=== PATIENT | female | born 1995 | race Caucasian/White ===

== ENCOUNTER 2023-09-24 15:30 | Emergency (ER) | payer MEDICAID, SELFPAY ==
[2023-09-24 15:51] VITALS: BP 124/92; PULSE 114; O2SAT 100
[2023-09-24 15:59] VITALS: BP 144/84; PULSE 102; RESP 18; TEMP 36.6; O2SAT 100; BMI 28.6
--- NOTE | 2023-09-24 16:14 | ECG_ITS ---
Test Reason : NEAR SYNCOPE Blood Pressure : / mmHG Vent. Rate : 104 BPM Atrial Rate : 104 BPM P-R Int : 136 ms QRS Dur : 090 ms QT Int : 338 ms P-R-T Axes : 075 044 036 degrees QTc Int : 444 ms Sinus tachycardia Possible Left atrial enlargement Borderline ECG No previous ECGs available Referred By: Guillermina Fry Electronically Signed By:Poncho Rose
--- NOTE | 2023-09-24 16:19 | ED.GENADULT ---
HPI - General Adult General Chief complaint: General Medical Stated complaint: SOB,HX HTN BEING MEDICATED FOR,5WKS Time Seen by Provider: 09/24/23 16:01 Source: patient Mode of arrival: EMS Limitations: no limitations History of Present Illness HPI narrative: Patient is a 28-year-old female history of childhood asthma, LMP 08/18/23, approximate 5wks , pending initial OB evaluation. States SOB intermittently with palpitations since yesterday w/o URI symptoms, checked her BP 140-150 diastolic despite compliance with her verapamil, advised by her PCP to come to the ED. Reports letting the dog outside last night and has a near syncopal episode, had another near syncople episode today [employer], stood up, felt dizzy, diaphoertic, blurred vision, was able to sit down until symptoms resolved. States hx PVC's, increse palpitations recently, no CP. reports hx hyperemisis gravidarum, received RX Diclegis, taking only at night as is causes her to become sleepy during the day. Continues to vomit, poor PO intake, mild lower ABD cramping. Denies urinary symptoms Related Data Allergies Allergy/AdvReac Type Severity Reaction Status Date / Time amoxicillin [From Augmentin] Allergy Vomiting Verified 09/24/23 15:58 clavulanic acid Allergy Vomiting Verified 09/24/23 15:58 [From Augmentin] Sulfa (Sulfonamide Allergy Rash Verified 09/24/23 15:58 Antibiotics) Review of Systems Review of Systems: Yes all other systems are reviewed and are negative PMFSH Past Medical History Attestation statement: The following information was validated with the patient. Source: old records reviewed Social History Social History Smoked in Last 30 Days: No Use of substances other than those prescribed or required for medical reasons: Yes Substance Use Type: Marijuana Substance Use Frequency: Occasionally Advance Directives: No Advance Directives Information Provided: No Patient : Yes Physical Exam ED Vital Signs: Vital Signs - 24 hr 09/24/23 15:59 09/24/23 16:44 09/24/23 16:46 Temperature 97.9 F Pulse Rate 102 H 99 106 H Respiratory Rate 18 Blood Pressure 144/84 H 132/69 135/84 Pulse Oximetry 100 Oxygen Delivery Method Room Air 09/24/23 16:48 09/24/23 19:50 Temperature Pulse Rate 120 H 98 Respiratory Rate 16 Blood Pressure 148/99 H 121/69 Pulse Oximetry 100 Oxygen Delivery Method Room Air BMI result Body Mass Index 28.6 Appearance: Alert.?Oriented to person, place and time. No acute distress.?Normal affect. Eyes: Pupils equal, round and reactive to light.? ENT: Pharynx normal.?? Neck: Normal inspection.? Neck supple.?? CVS: Heart sounds normal. Mild tachycardia.? Pulses normal.?? Respiratory: No respiratory distress.? Lung sounds clear to auscultation bilaterally?? Abdomen: Soft and non-tender. Normoactive bowel sounds. No pulsatile mass.?? Skin: Skin warm and dry.? Normal skin color.? Normal skin turgor.?? Extremities: No lower extremity edema.? No calf ttp? Neuro: Moves all extremities spontaneously. Sensation intact bilaterally. CN II-XII intact. No focal neuro deficits. Ambulates with normal steady gait. Course Reevaluation(s) Reevaluation #1: Orthostatic vital signs are negative. EKG revealing a sinus tachycardia with ventricular rate of 104, no acute ischemic changes, high sensitive troponin below detectable limits. Given multiple presyncopal episodes will obtain delta troponin to exclude ACS. COVID-19/influenza testing negative. Clinically have low suspicion for pneumonia, given no URI symptoms, does not appear consistent with acute asthma exacerbation, lung sounds are clear bilaterally, no respiratory distress. CBC reveals a mild leukocytosis of 11.6, suspect this is likely reactive due to vomiting. No significant electrolyte abnormality, no LC. LFTs lipase within normal range. Urinalysis without evidence of infection. She reports feeling much better. Has been ambulatory with steady gait. Recommend close outpatient follow-up with PCP fashion consultant sales, discussed worrisome signs symptoms that would warrant re-evaluation emergency department. All questions answered. Stable for discharge. Medications Administered Discontinued Medications Generic Name Dose Route Start Last Admin Trade Name Freq PRN Reason Stop Dose Admin Sodium Chloride 1,000 mls @ 999 mls/hr 09/24/23 16:15 09/24/23 17:44 Ns IV 09/24/23 17:15 Infused .Q1H1M GALILEA Infusion Metoclopramide HCl 10 mg 09/24/23 16:14 09/24/23 16:42 Metoclopramide Hcl 10 Mg/2 Ml Vial IVPUSH 09/24/23 16:15 10 mg ONCE ONE Administration Medical Decision Making Medical Decision Making [facility] Narrative: 28-year-old female history of hypertension, hyperemesis gravidarum presenting to emergency department for shortness of breath and 2 near syncopal episodes. Physical examination is benign, abdominal examination benign. No respiratory distress. No hypoxia or tachypnea. Mild tachycardia hypertensive. Will obtain CBC to evaluate for leukocytosis/ anemia, CMP and lipase to evaluate for abnormal electrolytes /abnormal renal function/ abnormal hepatic/biliary function, EKG and troponin to evaluate for ischemia/ACS. Urinalysis. Assess orthostatic vital signs. Patient received 1 L normal saline IV fluid, Reglan IV. Differential Diagnosis Differential Diagnoses: The differential diagnosis associated with the presentation includes Orthostatic hypotension, vasovagal syncope, viral syndrome, Suspect less likely ACS, heart score 0. Low suspicion for pulmonary embolism, early likely not contributory for hypercoagulable state. Admission/Observation Consideration of admission/observation: Escalation of care including admission/observation considered (See narrative above in course narrative for further detail) Lab Data [facility] Lab Attestation statement: I reviewed the patient's lab results. See course narrative 09/24/23 16:41 09/24/23 16:41 Labs: Lab Results 09/24/23 09/24/23 09/24/23 Range/Units 16:09 16:41 17:23 WBC 11.6 H (4.8-10.8) X10*3/uL RBC 4.46 (4.20-5.50) X10*6/uL Hgb 13.2 (12.0-16.0) g/dl Hct 38.3 (37.0-47.0) % MCV 85.9 (80.0-98.0) fL MCH 29.6 (27.0-33.0) pg MCHC 34.5 (31.0-35.0) g/dl RDW 12.1 (11.0-16.0) % Plt Count 324 (160-400) X10*3/uL MPV 10.4 (9.4-12.3) fL Immature Gran % (Auto) 0.3 (0.0-0.4) % Neut % (Auto) 75.0 H (45-73) % Lymph % (Auto) 19.9 L (20-40) % [place] % (Auto) 4.4 (2-11) % Eos % (Auto) 0.1 (0-4) % Baso % (Auto) 0.3 (0-2) % Lymph # (Auto) 2.3 (1.2-4.9) X10*3/uL [place] # (Auto) 0.5 (0.1-1.2) X10*3/uL Eos # (Auto) 0.0 (0.0-0.4) X10*3/uL Baso # (Auto) 0.0 (0.0-0.2) X10*3/uL Abs Immat Gran (auto) 0.03 (0.00-0.03) X10*3/uL Absolute Neuts (auto) 8.7 H (2.0-8.3) x10*3/uL Absolute Nucleated RBC 0.000 (0.0-0.012) X10*3/uL Nucleated RBC % (auto) 0.0 (0.0-0.2) /100WBC PT 12.9 (11.1-13.3) SEC INR 1.1 (0.9-1.1) Sodium 140 (135-145) mmol/L Potassium 3.7 (3.3-5.1) mmol/L Chloride 111 H (96-108) mmol/L Carbon Dioxide 22 (22-29) mmol/L Anion Gap 11 L (12-20) BUN 8 L (9-16) mg/dL Creatinine 0.70 (0.5-1.4) mg/dL Estim Creat Clear Calc 123.5 Estimated GFR > 60 Random Glucose 88 (60-115) mg/dL Calcium 9.2 (8.4-10.2) mg/dL Magnesium 2.1 (1.6-2.6) mg/dL Total Bilirubin 0.5 (0.0-1.0) mg/dL AST 15 (5-31) U/L ALT 12 (0-31) U/L Alkaline Phosphatase 59 (39-117) U/L Troponin I High Sens < 2.7 (<3.5-17.0) ng/L Total Protein 7.3 (6.5-8.0) g/dL Albumin 4.3 (3.5-5.0) g/dL Lipase 12 (8-78) U/L Beta HCG, Quant 3405 mIU/mL Urine Color Yellow Urine Appearance Clear Urine pH 8.5 (5.0-9.0) Ur Specific [place] 1.015 (1.005-1.025) Urine Protein Negative (Neg-Trace) mg/dL Urine Glucose (UA) Negative (Negative) mg/dL Urine Ketones 80 (Negative) mg/dL Urine Blood Negative (Negative) Urine Nitrite Negative (Negative) Ur Leukocyte Esterase Negative (Negative) COVID-19 (CITLALI) Negative (Negative) COVID-19 Clin Com See Note Influenza Type A (OWEN) Negative (Negative) Influenza Type B (OWEN) Negative (Negative) Influenza A & B Note See Note 09/24/23 Range/Units 19:53 WBC (4.8-10.8) X10*3/uL RBC (4.20-5.50) X10*6/uL Hgb (12.0-16.0) g/dl Hct (37.0-47.0) % MCV (80.0-98.0) fL MCH (27.0-33.0) pg MCHC (31.0-35.0) g/dl RDW (11.0-16.0) % Plt Count (160-400) X10*3/uL MPV (9.4-12.3) fL Immature Gran % (Auto) (0.0-0.4) % Neut % (Auto) (45-73) % Lymph % (Auto) (20-40) % [place] % (Auto) (2-11) % Eos % (Auto) (0-4) % Baso % (Auto) (0-2) % Lymph # (Auto) (1.2-4.9) X10*3/uL [place] # (Auto) (0.1-1.2) X10*3/uL Eos # (Auto) (0.0-0.4) X10*3/uL Baso # (Auto) (0.0-0.2) X10*3/uL Abs Immat Gran (auto) (0.00-0.03) X10*3/uL Absolute Neuts (auto) (2.0-8.3) x10*3/uL Absolute Nucleated RBC (0.0-0.012) X10*3/uL Nucleated RBC % (auto) (0.0-0.2) /100WBC PT (11.1-13.3) SEC INR (0.9-1.1) Sodium (135-145) mmol/L Potassium (3.3-5.1) mmol/L Chloride (96-108) mmol/L Carbon Dioxide (22-29) mmol/L Anion Gap (12-20) BUN (9-16) mg/dL Creatinine (0.5-1.4) mg/dL Estim Creat Clear Calc Estimated GFR Random Glucose (60-115) mg/dL Calcium (8.4-10.2) mg/dL Magnesium (1.6-2.6) mg/dL Total Bilirubin (0.0-1.0) mg/dL AST (5-31) U/L ALT (0-31) U/L Alkaline Phosphatase (39-117) U/L Troponin I High Sens < 2.7 (<3.5-17.0) ng/L Total Protein (6.5-8.0) g/dL Albumin (3.5-5.0) g/dL Lipase (8-78) U/L Beta HCG, Quant mIU/mL Urine Color Urine Appearance Urine pH (5.0-9.0) Ur Specific [place] (1.005-1.025) Urine Protein (Neg-Trace) mg/dL Urine Glucose (UA) (Negative) mg/dL Urine Ketones (Negative) mg/dL Urine Blood (Negative) Urine Nitrite (Negative) Ur Leukocyte Esterase (Negative) COVID-19 (CITLALI) (Negative) COVID-19 Clin Com Influenza Type A (OWEN) (Negative) Influenza Type B (OWEN) (Negative) Influenza A & B Note Independent Interpretation I performed an independent interpretation of an: EKG Interpretation: Rate:104 Rhythm:? Sinus tachycardia Mor[place]:? Normal Normal P waves.? Normal BRANDI.?? Normal QRS complex.?? ST T wave :??No ST elevation, no ST depression, no T-wave inversion qTC:444 The study has been interpreted contemporaneously by me. Independent Historian Clinical information obtained from an independent historian. History obtained from or confirmed by: EMS Critical Care Time Critical Care Time Critical Care Time: Yes Total Critical Care Time: 35 Attestation: I personally attest to this critical care time spent taking care of the patient exclusive of all other billable procedures was approximately 35 minutes including initial evaluation of patient, ordering tests,, EKG interpretation, medical consultation, documentation, re-evaluation. Discharge Plan Discharge Clinical Impression: Near syncope, Shortness of breath Patient Disposition: Home, Self-Care Instructions: Near Syncope (ED), Shortness of Breath (ED) Additional Instructions: Please follow-up closely with your primary care provider/fashion consultant sales provider for persistent symptoms. Your blood pressure today was much improved when compared to arrival, 121/9 before discharging. Your workup today reveals normal labs. Markers for heart attack were negative twice. Urine sample is without evidence of infection. COVID and flu testing is negative. Return back to emergency department with any new or worsening symptoms or concerns. As discussed, for your nausea and vomiting related to , the diclegis can make you sleepy during the day, you may also purchase [id number] vitamin B6, 25 mg to take 3 times daily, and take Unisom in the evening. Referrals: Monisha Sheffield MD [Primary Care Provider] - Interventions: ED Discharge Assessment Last Done: 09/24/23 21:33 Discharge Date/Time: 09/24/23 21:34
[2023-09-24 16:40] LABS: COVID-19 Test Negative (Negative); IDNOW Serial# 08D9AD1C; IDNOW Serial# 152EDE1D; Influenza A Negative (Negative); Influenza B2 Negative (Negative)
[2023-09-24] MEDS: Metoclopramide HCl 10 MG/2 ML VIAL IVPUSH (16:42)
[2023-09-24] MEDS: 0.9 % Sodium Chloride 1,000 ML 999 ML IV (16:43)
[2023-09-24 16:44] VITALS: BP 132/69; PULSE 99
[2023-09-24 16:45] LABS: MANUAL DIFF FLAG NO
[2023-09-24 16:46] VITALS: BP 135/84; PULSE 106
[2023-09-24 16:47] LABS: Basophils Percent Auto 0.3 % (0-2); Eosinophils Percent Auto 0.1 % (0-4); Hematocrit 38.3 % (37.0-47.0); Hemoglobin 13.2 g/dl (12.0-16.0); Imm Gran Abs Auto 0.03 X10*3/uL (0.00-0.03); Imm Gran Pct Auto 0.3 % (0.0-0.4); Lymphocytes Absolute Auto 2.3 X10*3/uL (1.2-4.9); Lymphocytes Percent Auto 19.9 % (20-40); Mean Corpuscular HGB Conc 34.5 g/dl (31.0-35.0); Mean Corpuscular Hemoglobin 29.6 pg (27.0-33.0); Mean Corpuscular Volume 85.9 fL (80.0-98.0); Mean Platelet Volume 10.4 fL (9.4-12.3); Monocytes Absolute Auto 0.5 X10*3/uL (0.1-1.2); Monocytes Percent Auto 4.4 % (2-11); Neutrophils Absolute Auto 8.7 x10*3/uL (2.0-8.3); Platelet Count 324 X10*3/uL (160-400); Red Blood Count 4.46 X10*6/uL (4.20-5.50); Red Cell Distribution Width 12.1 % (11.0-16.0); White Blood Count 11.6 X10*3/uL (4.8-10.8)
[2023-09-24 16:48] VITALS: BP 148/99; PULSE 120
[2023-09-24 17:03] LABS: INTERNATIONAL NORM RATIO 1.1 (0.9-1.1); Prothrombin Time 12.9 SEC (11.1-13.3)
[2023-09-24 17:07] LABS: Alanine Aminotransferase 12 U/L (0-31); Albumin Level 4.3 g/dL (3.5-5.0); Alkaline Phosphatase 59 U/L (39-117); Anion Gap 11 (12-20); Aspartate Amino Transferase 15 U/L (5-31); Bilirubin Total 0.5 mg/dL (0.0-1.0); Blood Urea Nitrogen 8 mg/dL (9-16); Calcium 9.2 mg/dL (8.4-10.2); Carbon Dioxide 22 mmol/L (22-29); Chloride 111 mmol/L (96-108); Creatinine Clr Calc Pharmacy 123.5; Estimated Glomerular Filt Rate > 60; Glucose Random 88 mg/dL (60-115); Lipase 12 U/L (8-78); Magnesium 2.1 mg/dL (1.6-2.6); Potassium 3.7 mmol/L (3.3-5.1); Sodium 140 mmol/L (135-145); Total Protein 7.3 g/dL (6.5-8.0); Troponin-I High Sensitivity < 2.7 ng/L (<3.5-17.0)
--- NOTE | 2023-09-24 17:23 | PC.NURSE ---
urine obtained/sent to lab.
[2023-09-24 17:31] LABS: HCG Quantitative 3405 mIU/mL
[2023-09-24 17:34] LABS: Appearance Urine Clear; Color Urine Yellow; Glucose Urine UA Negative (Negative); Leukocyte Esterase Urine Negative (Negative); Nitrite Urine Negative (Negative); PH 8.5 (5.0-9.0); Specific Gravity - Urine 1.015 (1.005-1.025); Urine Blood Negative (Negative); Urine Ketones 80 mg/dL (Negative); Urine Protein Negative (Neg-Trace)
[2023-09-24 19:50] VITALS: BP 121/69; PULSE 98; RESP 16; O2SAT 100
[2023-09-24 20:22] LABS: Troponin-I High Sensitivity < 2.7 ng/L (<3.5-17.0)
== END 2023-09-24 21:34 | disposition home or self-care (01) ==
PROVIDERS: Nurse Practitioner Family; Emergency Provider Emergency Medicine; PCP Family Medicine
DX: O99.511 Diseases of the respiratory system complicating pregnancy, first trimester (principal); R06.02 Shortness of breath; Z3A.01 Less than 8 weeks gestation of pregnancy; Z79.899 Other long term (current) drug therapy; Z11.52 Encounter for screening for COVID-19
CPT/HCPCS: 36415; 80053; 81003; 83690; 83735; 84484; 84702; 85025; 85610; 87502; 87635; 93005; 96361; 96374; 99284; 99285; J2765

== ENCOUNTER → 2023-09-24 16:14 | Outpatient (BNV) | payer MEDICAID, SELFPAY | PROVIDERS: Emergency Provider Emergency Medicine; PCP Family Medicine; Visit Provider Internal Medicine Cardiovascular Disease | DX: R42 Dizziness and giddiness (principal) | CPT/HCPCS: 93010 ==